=== PATIENT | female | born 1990 | race Caucasian/White ===

== ENCOUNTER 2021-07-07 23:41 | Emergency (ER) | payer OTHER ==
[~2021-07-07 23:41] MED LIST: BACTRIM DS TAB1 EACH PO; LAMICTAL100 MG PO; MACROBID100 MG PO; PROTONIX 40MG T40 MG PO; PROZAC20 MG PO
[2021-07-08 00:26] LABS: BASOPHIL 0.5 % (0-2); EOSINOPHIL 2.2 % (0-5); HCT 36.3 % (37.0-47.0); HGB 12.7 g/dl (12.5-16.0); LYMPHOCYTE 16.1 % (15-48); MCH 31.6 pg (25.0-31.0); MCV 90.3 fL (78.0-100.0); MONOCYTE 4.4 % (0-12); MPV 9.5 fL (6.0-9.5); NEUTROPHIL 76.5 % (41-80); NRBC 0; PLT 209 K/uL (150-400); RBC 4.02 M/uL (4.20-5.40); RDW 12.4 % (11.5-14.0); WBC 12.3 K/uL (4.0-10.5)
[2021-07-08 00:33] LABS: BILIRUBIN 1+ mg/dL (NEGATIVE); BLOOD TRACE-INTACT Ery/uL (NEGATIVE); GLUCOSE (U) NORMAL (NORMAL); LEUKOCYTES 2+ Leu/uL (NEGATIVE); NITRITE POSITIVE (NEGATIVE); PROTEIN 1+ mg/dL (NEGATIVE); SPECIFIC GRAVITY >=1.030 (1.001-1.030); pH 5.5 (5.0-9.0)
[2021-07-08 00:41] LABS: ALBUMIN 3.9 g/dL (3.4-5.0); BILIRUBIN - TOTAL 0.4 mg/dL (0.2-1.0); BUN/CREAT RATIO (CALC) 6.1 RATIO; CREATININE 0.82 mg/dL (0.51-0.95); POTASSIUM 3.6 mmol/L (3.5-5.1); TOTAL PROTEIN 6.9 g/dL (6.4-8.2)
[2021-07-08 00:54] LABS: COLOR YELLOW (YELLOW)
[2021-07-08 00:55] LABS: CLARITY CLEAR (CLEAR)
[2021-07-08 00:58] LABS: BACTERIA 2+
[2021-07-08] MEDS ORDERED: CIPRO250 MG PO (04:35)
[2021-07-08] MEDS ORDERED: ONDANSETRON ODT4 MG PO (04:36)
== END 2021-07-08 05:00 | disposition home or self-care (01) ==
LOC: FER 23:41
PROVIDERS: Emergency Medicine
DX: N39.0 Urinary tract infection, site not specified (principal); R11.2 Nausea with vomiting, unspecified
CPT/HCPCS: 36415; 80053; 81001; 83690; 85025; 99284

== ENCOUNTER 2021-12-29 19:41 | Emergency (ER) | payer OTHER ==
[~2021-12-29 19:41] MED LIST changes: +CIPRO250 MG PO; +ONDANSETRON ODT4 MG PO
[2021-12-29 20:12] LABS: BASOPHIL 0.7 % (0-2); EOSINOPHIL 5.1 % (0-5); HCT 37.1 % (37.0-47.0); LYMPHOCYTE 32.2 % (15-48); MCH 31.9 pg (25.0-31.0); MCV 91.2 fL (78.0-100.0); MONOCYTE 6.5 % (0-12); MPV 9.4 fL (6.0-9.5); NEUTROPHIL 55.3 % (41-80); NRBC 0; PLT 258 K/uL (150-400); RBC 4.07 M/uL (4.20-5.40); RDW 12.1 % (11.5-14.0); WBC 10.8 K/uL (4.0-10.5)
[2021-12-29 20:16] LABS: INR 1.04 (0.9-1.2); PTT 27.8 SECONDS (24.4-34.7)
[2021-12-29 20:25] LABS: BILIRUBIN - TOTAL 0.3 mg/dL (0.2-1.0); BUN/CREAT RATIO (CALC) 13.4 RATIO; CREATININE 0.67 mg/dL (0.51-0.95); GLOBULIN (CALCULATION) 2.8 g/dL; POTASSIUM 3.3 mmol/L (3.5-5.1); TOTAL PROTEIN 6.8 g/dL (6.4-8.2)
[2021-12-29] MEDS ORDERED: CARAFATE S500 MG/TSP PO (21:00)
[2021-12-29] MEDS ORDERED: PROTONIX40 MG PO (21:00)
== END 2021-12-29 21:20 | disposition home or self-care (01) ==
LOC: FER 19:41
PROVIDERS: Emergency Medicine
DX: R07.89 Other chest pain (principal); F17.210 Nicotine dependence, cigarettes, uncomplicated
CPT/HCPCS: 36415; 71045; 80053; 84484; 85025; 85610; 85730; 93005